=== PATIENT | male | born 1965 | race Caucasian/White ===

== ENCOUNTER 2022-04-16 08:09 | Emergency (ER) | payer MEDICAID, OTHER ==
[~2022-04-16] VITALS: Ht 170.2 cm; Wt 100.0 kg
[2022-04-16 08:43] LABS: BASOPHILS % 0.6 % (0.0-2.0); EOSINOPHILS % 3.2 % (0.0-5.0); HEMATOCRIT. 37.6 % (42.0-52.0); HEMOGLOBIN. 13.1 g/dL (14.0-18.0); LYMPHOCYTES % 20.6 % (20.0-50.0); MEAN CORPUSCULAR HEMOGLOBIN 28.6 pg (28.0-32.0); MEAN CORPUSCULAR VOLUME 82.2 fL (80.0-94.0); MEAN PLATELET VOLUME 7.5 fl (7.4-10.4); MONOCYTES % 4.7 % (2.0-8.0); NEUTROPHILS % 70.9 % (40.0-76.0); PLATELET 308 x1000/uL (130-400); RED BLOOD CELL COUNT 4.57 mill/uL (4.7-6.1); RED CELL DISTRIBUTION WIDTH 13.9 % (11.6-14.6)
[2022-04-16 08:50] LABS: CHLORIDE 105 mEq/L (98-107)
[2022-04-16 08:59] LABS: ETHANOL BLOOD < 10 mg/dL
[2022-04-16 10:24] VITALS: BP 148/93
== END 2022-04-16 12:17 | disposition home or self-care (01) ==
LOC: ER 08:09
DX: E11.65 Type 2 diabetes mellitus with hyperglycemia (principal); I10 Essential (primary) hypertension
CPT/HCPCS: 36415; 71045; 80053; 80320; 84484; 85025; 99285; G0480